=== PATIENT | male | born 1980 | race Caucasian/White ===

== ENCOUNTER 2017-03-20 07:04 | Emergency (ER) | payer SELFPAY ==
[~2017-03-20] VITALS: Ht 190.5 cm; Wt 95.3 kg
[2017-03-20] MEDS ORDERED: FAMOTIDINE 20 MG/2 ML VIAL IVP ONE (07:30)
[2017-03-20] MEDS ORDERED: IV NORMAL SALINE 1000ML BAG 1,000 ML IV ONE (07:30)
--- NOTE | 2017-03-20 07:33 | PHYS DOC ---
Past Medical History Past Medical History: Other Additional Past Medical Histor: kidney "problems" Past Surgical History: Other Additional Past Surgical Histo: "ureters rerouted" Alcohol Use: None Drug Use: None Adult General Chief Complaint Chief Complaint: ABDOMINAL PAIN [facility] HPI Patient is a 36 year old medical presents with 5 out of 10 constant right upper quadrant pain radiating into his right flank area that began this morning around 1 AM. Patient denies any associated symptoms including nausea vomiting urgency frequency hematuria or dysuria. He states he has history of kidney problems when he was 8 years old. 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 Patient states has not had issues with this since they were rerouted. Patient denies any fever. Review of Systems Review of Systems Constitutional: Denies fever or chills [] Eyes: Denies change in visual acuity, redness, or eye pain [] HENT: Denies nasal congestion or sore throat [] Respiratory: Denies cough or shortness of breath [] Cardiovascular: No additional information not addressed in HPI [] GI: Right upper quadrant abdominal pain radiating to the flank, denies nausea, vomiting, bloody stools or diarrhea [] : Denies dysuria or hematuria [] Musculoskeletal: Denies back pain or joint pain [] Integument: Denies rash or skin lesions [] Neurologic: Denies headache, focal weakness or sensory changes [] Current Medications Current Medications Current Medications Medications (Trade) Dose Ordered Sig/Cristobal Start Time Stop Time Status Last Admin Dose Admin Famotidine (Pepcid) 20 mg 1X ONCE 03/20/17 07:30 03/20/17 07:31 DC 03/20/17 07:47 20 MG Sodium Chloride 1,000 ml @ 1,000 mls/hr 1X ONCE 03/20/17 07:30 03/20/17 08:29 DC 03/20/17 07:46 1,000 MLS/HR Allergies Allergies Allergies Coded Allergies Type Severity Reaction Last Updated Verified No Known Drug Allergies 03/20/17 No Physical Exam Physical Exam Constitutional: Well developed, well nourished, no acute distress, non-toxic appearance. [] HENT: Normocephalic, atraumatic, bilateral external ears normal, oropharynx moist, no oral exudates, nose normal. [] Eyes: PERRLA, EOMI, conjunctiva normal, no discharge. [] Neck: Normal range of motion, no tenderness, supple, no stridor. [] Cardiovascular:Heart rate regular rhythm, no murmur [] Lungs & Thorax: Bilateral breath sounds clear to auscultation [] Abdomen: Bowel sounds normal, soft, slight tenderness to the right upper quadrant with a negative Valencia sign, no right lower quadrant tenderness, no guarding, no rebound pain or tenderness, no masses, no pulsatile masses. [] Skin: Warm, dry, no erythema, no rash. [] Back: No tenderness, no CVA tenderness. [] Extremities: No tenderness, no cyanosis, no clubbing, ROM intact, no edema. [] Neurologic: Alert and oriented X 3, normal motor function, normal sensory function, no focal deficits noted. [] Psychologic: Affect normal, judgement normal, mood normal. [] Current Patient Data Vital Signs Vital Signs Date Time Temp Pulse Resp B/P (MAP) Pulse Ox O2 Delivery O2 Flow Rate FiO2 03/20/17 07:10 97.8 72 18 137/93 (108) 97 Room Air 97.8 Lab Values Laboratory Tests Test 03/20/17 07:50 03/20/17 09:05 White Blood Count 4.0 x10^3/uL (4.0-11.0) Red Blood Count 5.48 x10^6/uL (4.30-5.70) Hemoglobin 15.9 g/dL (13.0-17.5) Hematocrit 46.6 % (39.0-53.0) Mean Corpuscular Volume 85 fL (79-100) Mean Corpuscular Hemoglobin 29 pg (25-35) Mean Corpuscular Hemoglobin Concent 34 g/dL (31-37) Red Cell Distribution Width 13.9 % (11.5-14.5) Platelet Count 186 x10^3/uL (140-400) Neutrophils (%) (Auto) 68 % (31-73) Lymphocytes (%) (Auto) 24 % (24-48) Monocytes (%) (Auto) 6 % (0-9) Eosinophils (%) (Auto) 1 % (0-3) Basophils (%) (Auto) 1 % (0-3) Neutrophils # (Auto) 2.7 x10^3uL (1.8-7.7) Lymphocytes # (Auto) 1.0 x10^3/uL (1.0-4.8) Monocytes # (Auto) 0.2 x10^3/uL (0.0-1.1) Eosinophils # (Auto) 0.0 x10^3/uL (0.0-0.7) Basophils # (Auto) 0.0 x10^3/uL (0.0-0.2) Sodium Level 141 mmol/L (136-145) Potassium Level 4.1 mmol/L (3.5-5.1) Chloride Level 106 mmol/L (98-107) Carbon Dioxide Level 31 mmol/L (21-32) Anion Gap 4 (6-14) L Blood Urea Nitrogen 13 mg/dL (8-26) Creatinine 1.1 mg/dL (0.7-1.3) Estimated GFR (Cockcroft-Gault) 76.2 BUN/Creatinine Ratio 12 (6-20) Glucose Level 99 mg/dL (70-99) Calcium Level 8.6 mg/dL (8.5-10.1) Total Bilirubin 0.5 mg/dL (0.2-1.0) Aspartate Amino Transferase (AST) 20 U/L (15-37) Alanine Aminotransferase (ALT) 37 U/L (16-63) Alkaline Phosphatase 98 U/L (46-116) Total Protein 7.8 g/dL (6.4-8.2) Albumin 4.0 g/dL (3.4-5.0) Albumin/Globulin Ratio 1.1 (1.0-1.7) Lipase 140 U/L (73-393) Ethyl Alcohol Level < 10 mg/dL (0-10) Urine Collection Type Unknown Urine Color Yellow Urine Clarity Clear Urine pH 7.0 Urine Specific [place] 1.020 Urine Protein 30 mg/dL (NEG-TRACE) Urine Glucose (UA) Negative mg/dL (NEG) Urine Ketones (Stick) Negative mg/dL (NEG) Urine Blood Negative (NEG) Urine Nitrite Negative (NEG) Urine Bilirubin Negative (NEG) Urine Urobilinogen Dipstick 1.0 mg/dL (0.2 mg/dL) Urine Leukocyte Esterase Negative (NEG) Urine RBC Occ /HPF (0-2) Urine WBC Occ /HPF (0-4) Urine Squamous Epithelial Cells Occ /LPF Urine Bacteria Few /HPF (0-FEW) Urine Mucus Marked /LPF Urine Sperm Present /HPF Laboratory Tests 03/20/17 07:50 Laboratory Tests 03/20/17 07:50 EKG EKG [] Radiology/Procedures Radiology/Procedures []PROCEDURE: CT ABDOMEN PELVIS WO CONTRAST Exam performed: CT abdomen pelvis without contrast. History: Right upper quadrant pain and flank pain today. Date of service: 03/21/17. Comparison: None available Technique: Contiguous helical acquisitions are obtained through the abdomen and pelvis without IV contrast. Sagittal and coronal reformatted images are obtained and reviewed. Findings: Lung bases are essentially clear. Linear opacity likely atelectasis in the anterior left lung base. Visualized heart is normal. Small hiatal hernia Lack of IV contrast limits evaluation of abdominal viscera, however the liver, gallbladder, spleen and pancreas appear normal. Both adrenal glands and bilateral kidneys are normal in size. No hydronephrosis or nephrolithiasis is seen. Aorta is normal in caliber without aneurysm. The small and large bowel loops are nondilated and unremarkable. Appendix not clearly seen, no inflammatory changes seen in the right lower quadrant Questionable wall thickening of the ascending, transverse and portion of descending colon without inflammatory changes. Occasional sigmoid diverticulosis. The urinary bladder is partially decompressed. The prostate gland, seminal vesicles and rectum appear normal. No free or focal fluid collections or pelvic lymphadenopathy seen. Impression: Questionable wall thickening of the ascending, transverse and portion of descending colon probably mild colitis. No additional abnormality seen. No evidence of urolithiasis or hydronephrosis seen. PQRS Compliance Statement: One or more of the following individualized dose reduction techniques were utilized for this examination: 1. Automated exposure control 2. Adjustment of the mA and/or kV according to patient size 3. Use of iterative reconstruction technique DICTATED and SIGNED BY: KOJO PRIEST MD DATE: 03/20/17813 CC: TROY CANCINO APRN; NO PCP ~ Course & Med Decision Making Course & Med Decision Making Pertinent Labs and Imaging studies reviewed. (See chart for details) This is a 36-year-old male patient presented to the ED today with a right upper quadrant abdominal pain radiating to his right flank that began early this morning. CBC CMP lipase with no acute findings. Urine analysis is negative for any acute findings. CT of the abdomen and pelvic with no contrast shows questionable wall thickening of ascending transverse portion of the descending colon probably mild colitis. Entire get it patient about possibility of diarrhea and vomiting. Patient now states he vomited last night. Denies any diarrhea. Informed him he could have a slight case of colitis. Instructed him to push fluids maintain good hand hygiene. Discharge him with Zofran and dicyclomine. Follow-up with his own PCP in one week. Instructed him to return to the ED symptoms worsen. Dragon Disclaimer Dragon Disclaimer This electronic medical record was generated, in whole or in part, using a voice recognition dictation system. Departure Departure Impression: Primary Impression: Right upper quadrant abdominal pain Additional Impression: Colitis Disposition: HOME, SELF-CARE Condition: STABLE Referrals: MICHAEL GALLEGO MD follow up in one week Patient Instructions: Abdominal Pain, Colitis Additional Instructions: You were seen with abdominal pain. Your CT of the abdomen and pelvic is suspicious for colitis. This is a virus that typically runs its own course. Maintain good hand hygiene. Push fluids. Follow-up with your doctor in one week. Come back to the ED symptoms worsen. Scripts Dicyclomine Hcl (DICYCLOMINE HCL) 20 Mg Tablet 1 TAB PO TID, #30 TAB 0 Refills Prov: TROY CANCINO APRN 03/20/17 Ondansetron (ZOFRAN ODT) 4 Mg Tab.rapdis 1 TAB SL Q8HRS, #15 TAB Prov: TROY CANCINO APRN 03/20/17 Problem Qualifiers TROY CANCINO APRN Mar 20, 2017 07:33
[2017-03-20 08:03] LABS: BASO % 1 % (0-3); EOS % 1 % (0-3); HEMATOCRIT 46.6 % (39.0-53.0); HEMOGLOBIN 15.9 g/dL (13.0-17.5); LYMPH % 24 % (24-48); MEAN CORPUSCULAR HEMOGLOBIN 29 pg (25-35); MEAN CORPUSCULAR HGB CONC 34 g/dL (31-37); MEAN CORPUSCULAR VOLUME 85 fL (79-100); MONO % 6 % (0-9); NEUT % 68 % (31-73); PLATELET COUNT 186 x10^3/uL (140-400); RED BLOOD COUNT 5.48 x10^6/uL (4.30-5.70); RED CELL DISTRIBUTION WIDTH 13.9 % (11.5-14.5)
[2017-03-20 08:18] LABS: CALCIUM 8.6 mg/dL (8.5-10.1); CREATININE 1.1 mg/dL (0.7-1.3); GFR 76.2; POTASSIUM 4.1 mmol/L (3.5-5.1)
--- NOTE | 2017-03-20 08:22 | RAD ---
Exam performed: CT abdomen pelvis without contrast. History: Right upper quadrant pain and flank pain today. Date of service: 03/21/17. Comparison: None available Technique: Contiguous helical acquisitions are obtained through the abdomen and pelvis without IV contrast. Sagittal and coronal reformatted images are obtained and reviewed. Findings: Lung bases are essentially clear. Linear opacity likely atelectasis in the anterior left lung base. Visualized heart is normal. Small hiatal hernia Lack of IV contrast limits evaluation of abdominal viscera, however the liver, gallbladder, spleen and pancreas appear normal. Both adrenal glands and bilateral kidneys are normal in size. No hydronephrosis or nephrolithiasis is seen. Aorta is normal in caliber without aneurysm. The small and large bowel loops are nondilated and unremarkable. Appendix not clearly seen, no inflammatory changes seen in the right lower quadrant Questionable wall thickening of the ascending, transverse and portion of descending colon without inflammatory changes. Occasional sigmoid diverticulosis. The urinary bladder is partially decompressed. The prostate gland, seminal vesicles and rectum appear normal. No free or focal fluid collections or pelvic lymphadenopathy seen. Impression: Questionable wall thickening of the ascending, transverse and portion of descending colon probably mild colitis. No additional abnormality seen. No evidence of urolithiasis or hydronephrosis seen. PQRS Compliance Statement: One or more of the following individualized dose reduction techniques were utilized for this examination: 1. Automated exposure control 2. Adjustment of the mA and/or kV according to patient size 3. Use of iterative reconstruction technique
[2017-03-20 08:23] LABS: ALBUMIN/GLOBULIN RATIO 1.1 (1.0-1.7); TOTAL BILIRUBIN 0.5 mg/dL (0.2-1.0); TOTAL PROTEIN 7.8 g/dL (6.4-8.2)
[2017-03-20 09:24] LABS: BILIRUBIN,URINE NEGATIVE (NEG); GLUCOSE,URINE NEGATIVE (NEG); NITRITE,URINE NEGATIVE (NEG); PROTEIN,URINE 30 mg/dL (NEG-TRACE)
[2017-03-20 09:47] LABS: BACTERIA,URINE FEW /HPF (0-FEW); SQUAMOUS EPITHELIAL CELL,UR OCC /LPF
[2017-03-20 09:48] LABS: RBC,URINE OCC /HPF (0-2); SPERM,URINE PRESENT /HPF; WBC,URINE OCC /HPF (0-4)
[2017-03-20] MEDS ORDERED: DICY20TA3 PO (10:06)
[2017-03-20] MEDS ORDERED: ONDA4TAB10 SL (10:06)
[2017-03-20 10:10] VITALS: BP 119/86
[2017-03-20 10:12] LABS: BARBITURATES NEG (NEG); BENZODIAZEPINES NEG (NEG); CANNABINOIDS NEG (NEG); COCAINE NEG (NEG); METHADONE NEG (NEG); OPIATES NEG (NEG); PHENCYCLIDINE NEG (NEG)
== END 2017-03-20 10:18 | disposition home or self-care (01) ==
LOC: ER 07:04
DX: K52.9 Noninfective gastroenteritis and colitis, unspecified (principal); Z79.899 Other long term (current) drug therapy
CPT/HCPCS: 36415; 74176; 80053; 80307; 81001; 83690; 85025; 96361; 96374; 99285; G0480; J7030; S0028; G0479